=== PATIENT | male | born 1995 | race African-American/Black ===

== ENCOUNTER 2016-04-17 17:46 | Emergency (ER) | payer OTHER ==
[2016-04-17 17:59] VITALS: BP 143/81; PULSE 105; TEMP 97.8; BMI 23.9
[2016-04-17] MEDS ORDERED: IBUPROFEN 400 MG TABLET (FP) PO ONE ×2 (18:29→18:33)
--- NOTE | 2016-04-17 18:35 | PDOC ---
History of Present Illness - General Chief Complaint: Abscess Boil Stated Complaint: BUMPS ON CHEST Time Seen by Provider: 04/17/16 17:52 History Source: Patient - History of Present Illness Associated Symptoms: denies: fever/chills Past History - Past Medical History Allergies/Adverse Reactions: Allergies Allergy/AdvReac Type Severity Reaction Status Date / Time No Known Allergies Allergy Verified 06/22/14 23:29 Home Medications: Ambulatory Orders NK [No Known Home Medication] 04/17/16 Other medical history: denies - Immunization History Immunization Up to Date: Yes - Psycho/Social/Smoking Cessation Hx Anxiety: No Suicidal Ideation: No Smoking History: Current every day smoker Number of Cigarettes Smoked Daily: 20 Information on smoking cessation initiated: Yes 'Breaking Loose' booklet given: 04/17/16 Hx Alcohol Use: Yes Drug/Substance Use Hx: Yes (marijuana) Substance Use Type: None, Marijuana Review of Systems - Review of Systems Constitutional: No: Chills, Fever, Malaise, Unexplained wgt Loss *Physical Exam - Vital Signs Last Vital Signs Temp Pulse Resp BP Pulse Ox 97.8 F 105 H 18 143/81 99 04/17/16 17:52 04/17/16 17:52 04/17/16 17:52 04/17/16 17:52 04/17/16 17:52 - Physical Exam General Appearance: Yes: Appropriately Dressed. No: Apparent Distress HEENT: positive: Normal Voice Neck: positive: Supple. negative: Lymphadenopathy (R), Lymphadenopathy (L) Respiratory/Chest: positive: Other (b/l tender breast masses b/l, underlying nipple, R side measuring ~1cm, L side ~0.5cm, no fluctuance, no erythema). negative: Respiratory Distress Integumentary: positive: Dry, Warm Neurologic: positive: Fully Oriented, Alert, Normal Mood/Affect Medical Decision Making - Medical Decision Making 04/17/16 18:29 21-year-old male, no significant history, here for evaluation of breast mass. Patient states 3-4 weeks ago he developed bilateral painful masses to breast, underlying nipple. Was seen in urgent care center 3 weeks ago and had bilateral ultrasound done but does not remember diagnosis but told it was not an infxn as per pt. States he was told to follow-up with his doctor for further workup. Patient states he made an appointment for April 26 but thought that the date was too far out, so canceled appointment and now planning on making another appointment with a different doctor. Here for another evaluation ED as he is anxious as per patient. No nipple discharge, fever, chills or unexplained weight loss. No significant family history. Patient well -appearing and stable in ED w/ palpable, tender masses under areola bilaterally , right measuring about 1 cm, left side measuring about 0.5 cm. No fluctuance, nipple changes otherwise or cervical or axillary lymphadenopathy. Had lengthy discussion with patient regarding definition of gynecomastia and that given bilateral involvement, less likely malignancy, but that he will need to follow up with his doctor for further workup. Patient instructed to take Motrin as needed until then *DC/Admit/Observation/Transfer Diagnosis at time of Disposition: Gynecomastia, male - Discharge Dispostion Disposition: HOME Condition at time of disposition: Good - Referrals Referrals: Romina Crump MD [Primary Care Provider] - Jerry Walker [Staff Physician] - - Patient Instructions Printed Discharge Instructions: DI for Gynecomastia Additional Instructions: Take Motrin as needed for pain and follow-up with your PMD for further workup. You can also follow-up with Dr. Walker of endocrinology. Please follow-up at [facility] at [phone] - Post Discharge Activity Work/School Note: Back to Work
== END 2016-04-17 18:44 | disposition home or self-care (01) ==
LOC: JERFT 17:46
DX: N62 Hypertrophy of breast (principal); F17.210 Nicotine dependence, cigarettes, uncomplicated
CPT/HCPCS: 99281-25

== ENCOUNTER 2019-01-02 11:19 | Inpatient (IN) | payer OTHER ==
[2019-01-02 14:01] VITALS: BMI 23.4
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
[2019-01-02] MEDS ORDERED: BISMUTH SUBSALICYLATE 524 MG/30 ML UD PO PRN (14:51)
[2019-01-02] MEDS ORDERED: METHOCARBAMOL 500 MG TABLET PO PRN (14:51)
[2019-01-02] MEDS ORDERED: hydrOXYzine PAMOATE 25 MG CAPSULE (FP) PO PRN (14:51)
[2019-01-02] MEDS ORDERED: MAG HYDROX/AL HYDROX/SIMETH 30 ML UNIT-DOSE CUP PO PRN (14:51)
[2019-01-02] MEDS ORDERED: NICOTINE POLACRILEX 4 MG GUM BUC PRN (14:51)
[2019-01-02] MEDS ORDERED: MAGNESIUM HYDROX 2400MG/30ML ORAL SUSPENSION 30 ML CUP PO PRN (14:51)
[2019-01-02] MEDS ORDERED: MENTHOL/PHENOL 1 EACH UD MM PRN (14:51)
[2019-01-02] MEDS ORDERED: IBUPROFEN 400 MG TABLET (FP) PO PRN (14:51)
[2019-01-02] MEDS ORDERED: MELATONIN 5 MG TABLETS PO PRN (14:51)
[2019-01-02] MEDS ORDERED: MAGNESIUM CITRATE 300 ML BOTTLE PO PRN (14:51)
[2019-01-02] MEDS ORDERED: chlordiazePOXIDE HCL 25 MG CAPSULE PO PRN (14:51)
[2019-01-02] MEDS ORDERED: chlordiazePOXIDE HCL 25 MG CAPSULE PO ONE (14:51)
[2019-01-02] MEDS ORDERED: ACETAMINOPHEN 325 MG TABLET (FP) PO PRN ×2 (14:51)
[2019-01-02] MEDS: ALBUTEROL SO4 8 GM HFA INHALER IH SCH (17:39)
[2019-01-02] MEDS: chlordiazePOXIDE HCL 25 MG CAPSULE PO SCH ×2 (17:40→23:12)
[2019-01-02] MEDS ORDERED: THIAMINE HCL 100 MG TABLET (FP) PO SCH (22:00)
[2019-01-03] MEDS: ALBUTEROL SO4 8 GM HFA INHALER IH SCH ×2 (00:57→06:52)
[2019-01-03] MEDS: chlordiazePOXIDE HCL 25 MG CAPSULE PO SCH ×2 (05:28→10:25)
[2019-01-03 09:11] VITALS: BP 130/84; PULSE 72; TEMP 96.4
[2019-01-03] MEDS ORDERED: PRENATAL VITAMINS W/ FOLIC ACID TABLET (FP) PO SCH (10:00)
[2019-01-03 10:29] LABS: HEMATOCRIT 47.3 % (35.4-49); HEMOGLOBIN 15.7 GM/dL (11.7-16.9); MCH 30.7 pg (25.7-33.7); MCHC 33.1 g/dl (32.0-35.9); MEAN CELL VOLUME 92.7 fl (80-96); MEAN PLT VOLUME 9.3 fl (7.5-11.1); RDW 17.1 % (11.9-15.9); WHITE BLOOD COUNT 4.9 K/mm3 (4.0-10.0)
[2019-01-03 10:40] LABS: ALBUMIN 3.9 g/dl (3.4-5.0); BILIRUBIN,TOTAL 1.2 mg/dL (0.2-1); BLOOD UREA NITROGEN 6.8 mg/dL (7-18); CALCIUM 9.4 mg/dL (8.5-10.1); CREATININE 0.9 mg/dL (0.55-1.3); POTASSIUM 3.7 mmol/L (3.5-5.1); TOT PROT 7.4 g/dl (6.4-8.2)
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
--- NOTE | 2019-01-03 10:54 | EKG ---
Test Reason : Blood Pressure : / mmHG Vent. Rate : 073 BPM Atrial Rate : 073 BPM P-R Int : 148 ms QRS Dur : 086 ms QT Int : 384 ms P-R-T Axes : 058 080 028 degrees QTc Int : 423 ms NORMAL SINUS RHYTHM NONSPECIFIC ST ABNORMALITY ABNORMAL ECG NO PREVIOUS ECGS AVAILABLE Confirmed by BLANCA NICOLAS, SLY ([id number]) on 01/03/2019 10:53:56 AM Referred By: Michel Workman Confirmed By:SLY RIOS MD
[2019-01-03] MEDS ORDERED: hydrOXYzine PAMOATE 25 MG CAPSULE (FP) PO PRN (11:17)
[2019-01-03 14:46] LABS: PLATELET COUNT 180 K/MM3 (134-434)
--- NOTE | 2019-01-03 14:54 | DS ---
[facility] Detox Discharge Summary Admission Date: 01/02/19 Discharge Date: 01/03/19 - History Present History: Alcohol Dependence Additional Comments: 23 years old male admitted on 01/02/19 for alcohol withdrawal sx management treated with librium detox regimen patient tolerated well ate breakfast no trouble chewing swallowing tolerated food and fluid well showered "I volunteer coming here, I want to go now" patient is alert oriented x 3 speech clearly coherently ambulating steady gait denies suicidal ideation Pertinent Past History: patient refuses ciwa refuses discharge exist physical examination - Physical Exam Results Vital Signs: Vital Signs Temperature 96.4 F L 01/03/19 09:10 Pulse Rate 72 01/03/19 09:10 Respiratory Rate 18 01/03/19 09:10 Blood Pressure 130/84 01/03/19 09:10 O2 Sat by Pulse Oximetry (%) Pertinent Admission Physical Exam Findings: alcohol withdrawal sx Laboratory Last Values WBC 4.9 K/mm3 (4.0-10.0) 01/03/19 07:50 RBC 5.10 M/mm3 (4.00-5.60) 01/03/19 07:50 Hgb 15.7 GM/dL (11.7-16.9) 01/03/19 07:50 Hct 47.3 % (35.4-49) 01/03/19 07:50 MCV 92.7 fl (80-96) 01/03/19 07:50 MCH 30.7 pg (25.7-33.7) 01/03/19 07:50 MCHC 33.1 g/dl (32.0-35.9) 01/03/19 07:50 RDW 17.1 % (11.9-15.9) H 01/03/19 07:50 Plt Count 180 K/MM3 (134-434) 01/03/19 07:50 MPV 9.3 fl (7.5-11.1) 01/03/19 07:50 Platelet Comment Giant platelets 01/03/19 07:50 Sodium 137 mmol/L (136-145) 01/03/19 07:40 Potassium 3.7 mmol/L (3.5-5.1) 01/03/19 07:40 Chloride 102 mmol/L (98-107) 01/03/19 07:40 Carbon Dioxide 29 mmol/L (21-32) 01/03/19 07:40 Anion Gap 7 MMOL/L (8-16) L 01/03/19 07:40 BUN 6.8 mg/dL (7-18) L 01/03/19 07:40 Creatinine 0.9 mg/dL (0.55-1.3) 01/03/19 07:40 Est GFR (CKD-EPI)AfAm 137.10 01/03/19 07:40 Est GFR (CKD-EPI)NonAf 118.29 01/03/19 07:40 Random Glucose 74 mg/dL (74-106) 01/03/19 07:40 Calcium 9.4 mg/dL (8.5-10.1) 01/03/19 07:40 Total Bilirubin 1.2 mg/dL (0.2-1) H 01/03/19 07:40 AST 20 U/L (15-37) 01/03/19 07:40 ALT 27 U/L (13-61) 01/03/19 07:40 Alkaline Phosphatase 92 U/L (45-117) 01/03/19 07:40 Total Protein 7.4 g/dl (6.4-8.2) 01/03/19 07:40 Albumin 3.9 g/dl (3.4-5.0) 01/03/19 07:40 RPR Titer Nonreactive (NONREACTIVE) 01/03/19 07:40 lab noted - Treatment Hospital Course: Detox Protocol Followed, Responded well Patient has Accepted a Rehab Referral to: community support approach - Medication Discharge Medications: Ambulatory Orders Albuterol Sulfate Inhaler - [Ventolin Hfa Inhaler -] 2 inh PO Q6H 01/02/19 - Diagnosis (1) Alcohol dependence with withdrawal, uncomplicated Status: Acute (2) Nicotine dependence Status: Acute Qualifiers: Nicotine product type: cigarettes Substance use status: in withdrawal Qualified Code(s): F17.213 - Nicotine dependence, cigarettes, with withdrawal - AMA Did Patient Leave Against Medical Advice: Yes
[2019-01-04] MEDS ORDERED: chlordiazePOXIDE HCL 25 MG CAPSULE PO SCH (05:00)
[2019-01-05] MEDS ORDERED: chlordiazePOXIDE HCL 10 MG CAPSULE PO PRN
[2019-01-05] MEDS ORDERED: chlordiazePOXIDE HCL 10 MG CAPSULE PO SCH (05:00)
[2019-01-06] MEDS ORDERED: chlordiazePOXIDE HCL 10 MG CAPSULE PO SCH (05:00)
[2019-01-07] MEDS ORDERED: chlordiazePOXIDE HCL 10 MG CAPSULE PO ONE (05:00)
== END 2019-01-03 12:49 | disposition left against medical advice (07) | DRG 770 ==
LOC: YASAS 11:19 → Y3N 15:04
PROVIDERS: ADMIT Allergy & Immunology; ATTEND Allergy & Immunology
PROC: HZ2ZZZZ Detoxification Services for Substance Abuse Treatment (ICD-10-PCS; principal; 2019-01-02)
DX: F10.230 Alcohol dependence with withdrawal, uncomplicated (principal); F14.20 Cocaine dependence, uncomplicated; F12.20 Cannabis dependence, uncomplicated; F11.10 Opioid abuse, uncomplicated; F17.213 Nicotine dependence, cigarettes, with withdrawal; J45.20 Mild intermittent asthma, uncomplicated; R00.0 Tachycardia, unspecified
CPT/HCPCS: 36415; 80053; 85027; 86593; 93005; 93010

== ENCOUNTER 2019-01-04 00:47 | Emergency (ER) | payer OTHER ==
--- NOTE | 2019-01-04 01:41 | PDOC ---
History of Present Illness - General Chief Complaint: Depression Stated Complaint: DEPRESSED Time Seen by Provider: 01/04/19 01:41 History Source: Patient Exam Limitations: No Limitations - History of Present Illness Initial Comments: Pt is a 23 yo M, with PMH of polysubstance abuse (THC, cocaine, alcohol), who is presenting to the ER for detox. Pt states he left AMA from [facility] earlier today "because he got mad that he was in withdrawal". Pt then drank "1 pint of jigna" and "used a 40 bag of cocaine" just prior to arrival. Pt denies any SI or HI and had no falls or injuries today. Pt denies any fevers/chills, tremors or withdrawal symptoms, headache, vision changes, syncope, chest pain, palpitations, SOB, nausea/vomiting, abdominal pain, urinary symptoms, diarrhea/ constipation, or leg swelling. Allergies: NKDA PCP: Dr. Romina Elise Social: Pt smokes 1 ppd. Regular alcohol use (~1 pint/day) and frequent cocaine use. Pt lives alone in an apartment and feels safe at home. Has running water, electricity, and food at home. Pt denies any recent travel or sick contacts. Surgical: no relevant history. Family: no relevant history. Past History - Past Medical History Allergies/Adverse Reactions: Allergies No Known Allergies Allergy (Verified 01/04/19 01:43) Home Medications: Ambulatory Orders Albuterol Sulfate Inhaler - [Ventolin Hfa Inhaler -] 2 inh PO Q6H 01/02/19 Psychosocial History: Yes: hypertension Surgical History: Yes: No Surgical History - Family History Significant Family History: Yes: no pertinent family hx - Immunization History Immunization Up to Date: Yes Tetanus Status: Less than 5 years - Social History Smoking History: Yes Smoking Status: Current every day smoker Number of Cigarettes Per Day: 20 Alcohol Use: heavy Drug Use: cocaine, marijuana Patient Lives Alone: Yes *Review of Systems - Review of Systems Able to Perform ROS?: Yes Constitutional: Yes: Weight Stable. No: Chills, Diaphoresis, Fever, Loss of Appetite, Malaise, Weakness HEENTM: No: Recent change in vision, Nose Congestion, Throat Pain, Throat Swelling, Difficulty Swallowing Respiratory: No: Cough, Orthopnea, Shortness of Breath Cardiac (ROS): No: Chest Pain, Edema, Irregular Heart Rate, Lightheadedness, Palpitations, Syncope, Chest Tightness ABD/GI: No: Constipated, Diarrhea, Nausea, Poor Appetite, Poor Fluid Intake, Vomiting : No: Burning, Dysuria, Frequency, Flank Pain, Hematuria, Pain, Urgency Musculoskeletal: No: Back Pain, Joint Pain, Muscle Pain, Muscle Weakness Integumentary: No: Rash Neurological: No: Headache, Numbness, Weakness, Unsteady Gait, Dizziness Psychiatric: Yes: Emotional Problems, Other (polysubstance abuse, see HPI). No : Sleep Pattern Change, Change in Appetite Endocrine: No: Increased Urine, Change in Weight Hematologic/Lymphatic: No: Anemia, Blood Clots, Easy Bleeding, Easy Bruising All Other Systems: Reviewed and Negative *Physical Exam - Physical Exam Comments: HTN and tachycardic. Pt in NAD, normal body habitus, but visibly intoxicated and slurring speech. Appears comfortable, sleeping on the bed. Affect slightly flat, but answers all questions appropriately. Pt alert and oriented x3. insurance attorney generally intact, muscular strength and sensation intact. Cerebellar exam WNL. No midline spinal tenderness, step-offs, or crepitus. Head normocephalic, atraumatic. Eyes PERRLA, EOMI. Oropharynx without erythema or exudates, no LAD b/l. No nasal congestion. Hearing intact. Clear heart sounds, S1/S2, no JVD, b/l pedal edema, or heart murmur. Clear lung sounds, no respiratory distress, wheezes, crackles, or accessory muscle use. No abdominal or CVA tenderness to palpation, no rebound, no guarding. Abdomen soft, non-distended, and with normoactive bowel sounds. Skin without jaundice or rash. 01/04/19 04:34 Medical Decision Making - Medical Decision Making Pt was seen at bedside, also will be seen by attending Dr. Dwyer. Pt presenting intoxicated and asking for detox services. Pt left AMA earlier today, but had labwork that was generally WNL. Pt has no acute complaints, denies SI/HI, denies withdrawal symptoms. No tongue fasciculation or hand tremors. Pt tolerating PO intake in ED. Will continue to reassess pt and monitor for symptomatic improvement. ECG: NSR, intervals WNL (HR 93, GA 154, QRS 88, QTc 427). TWI in III with no reciprocal changes or ST segment abnormalities. No significant changes from prior ECG (01/02/2019). 01/04/19 04:37 [facility] will accept pt for detox intake in the AM. Pt resting comfortably. Will go to [facility] at 8am. Pt will be signed out to day team for transportation. 01/04/19 04:37 Discharge Disposition - Diagnosis Alcohol abuse, Cocaine abuse - Discharge Dispostion Condition at time of disposition: Stable Last Admission D/C Date: 01/03/19 Decision to Admit order: No - Referrals Referrals: Romina Crump MD [Primary Care Provider] - - Patient Instructions - Post Discharge Activity
[2019-01-04 01:43] VITALS: BMI 23.6
[2019-01-04 06:22] VITALS: BP 131/87; PULSE 59; TEMP 97.5
--- NOTE | 2019-01-04 10:01 | EKG ---
Test Reason : Blood Pressure : / mmHG Vent. Rate : 093 BPM Atrial Rate : 093 BPM P-R Int : 154 ms QRS Dur : 088 ms QT Int : 344 ms P-R-T Axes : 069 068 024 degrees QTc Int : 427 ms NORMAL SINUS RHYTHM NONSPECIFIC T WAVE ABNORMALITY ABNORMAL ECG WHEN COMPARED WITH ECG OF 02-JAN-2019 16:17, NO SIGNIFICANT CHANGE WAS FOUND Confirmed by ALBERT LEON MD ([id number]) on 01/04/2019 10:01:38 AM Referred By: Confirmed By:ALBERT LEON MD
--- NOTE | 2019-01-07 09:25 | PDOC ---
Documentation entered by Vicky Mora SCRIBE, acting as scribe for Mark Dwyer MD. Mark Dwyer MD: This documentation has been prepared by the rogeribe, Vicky Mora SCRIBE, under my direction and personally reviewed by me in its entirety. I confirm that the documentation accurately reflects all work, treatment, procedures, and medical decision making performed by me. Attending Attestation - Resident Resident Name: BryanDenisha - ED Attending Attestation I have performed the following: I have examined & evaluated the patient, The case was reviewed & discussed with the resident, I agree w/resident's findings & plan, Exceptions are as noted - HPI HPI: 01/04/19 02:08 23 M with h/o ETOH, marijuana, cocaine abuse presenting to ED seeking alcohol detox. Pt was recently admitted to [address] [place] [address] for ETOH detox 3 days ago. This morning, pt left AMA because he was afraid he was going to withdraw. He subsequently drank a bottle of solomon and used cocaine. Pt now presents to ED seeking re-admission for detox. Pt denies any SI/HI/AVH. Denies any attempts to hurt himself. - Physicial Exam PE: 01/04/19 02:09 "GENERAL: Awake, alert, and fully oriented, in no acute distress. HEAD: No signs of trauma EYES: PERRLA, EOMI, sclera anicteric, conjunctiva clear ENT: Auricles normal inspection, hearing grossly normal, nares patent, oropharynx clear without exudates. Moist mucosa NECK: Nontender, no stepoffs, Normal ROM, supple, no lymphadenopathy, JVD, or masses LUNGS: Breath sounds equal, clear to auscultation bilaterally. No wheezes, and no crackles HEART: Regular rate and rhythm, normal S1 and S2, no murmurs, rubs or gallops ABDOMEN: Soft, nontender, normoactive bowel sounds. No guarding, no rebound. No masses EXTREMITIES: Normal range of motion, no edema. No clubbing or cyanosis. No cords, erythema, or tenderness NEUROLOGICAL: Cranial nerves II through XII intact. 5/5 strength and sensation in all extremities, Normal speech, normal gait, normal cerebellar function SKIN: Warm, Dry, normal turgor, no rashes or lesions noted. - Medical Decision Making 01/04/19 02:10 23 M with ETOH, cocaine, marijuana abuse presenting to ED seeking detox. Pt is not actively withdrawing, has no complaints of SI/HI/AVH. - Labs drawn this AM wnl - Will check Utox, EKG 01/04/19 02:31 EKG wnl Pt clinically sober at this time. Awaiting [facility] bed availability in AM. Signed out to oncoming team at 7AM, pending [facility] bed availability.
== END 2019-01-04 08:20 | disposition home or self-care (01) ==
LOC: JER 00:47
DX: F10.10 Alcohol abuse, uncomplicated (principal); F14.10 Cocaine abuse, uncomplicated; I10 Essential (primary) hypertension; F17.210 Nicotine dependence, cigarettes, uncomplicated
CPT/HCPCS: 93005; 93010; 99283-25

== ENCOUNTER 2022-01-27 17:42 | Inpatient (IN) | payer OTHER ==
[2022-01-27 17:46] VITALS: BMI 22.1
[2022-01-27] MEDS ORDERED: morphine CARPU-JECT 4 MG/1 ML DISP.SYRIN IVPUSH ONE ×2 (19:11→21:45)
[2022-01-27] MEDS ORDERED: SODIUM CHLORIDE 0.9% 500 ML INFUS.BAG IV ONE (19:11)
[2022-01-27] MEDS ORDERED: morphine SULFATE 4 MG/ML VIAL ONE ×2 (20:36→21:47)
[2022-01-27] MEDS ORDERED: ONDANSETRON 4 MG/2 ML VIAL IVPUSH ONE (20:45)
[2022-01-27] MEDS ORDERED: ONDANSETRON 4 MG/2 ML VIAL ONE (20:46)
[2022-01-27 21:05] LABS: BASO % 0.3 % (0-2.0); EOS % 0.1 % (0-4.5); HEMATOCRIT 52.4 % (35.4-49); HEMOGLOBIN 17.6 GM/dL (11.7-16.9); LYMPH % 6.4 % (8-40); MCHC 33.5 g/dl (32.0-35.9); MEAN CELL VOLUME 89.6 fl (80-96); MEAN PLT VOLUME 8.6 fl (7.5-11.1); MONO % 7.8 % (3.8-10.2); NEUT % 85.4 % (42.8-82.8); PLATELET COUNT 260 10^3/uL (134-434); RBC 5.85 M/mm3 (4.00-5.60); RDW 13.9 % (11.9-15.9); WHITE BLOOD COUNT 12.6 K/mm3 (4.0-10.0)
[2022-01-27 21:27] LABS: CALCIUM 10.2 mg/dL (8.5-10.1)
[2022-01-27 21:28] LABS: ALBUMIN 4.3 g/dl (3.4-5.0); BLOOD UREA NITROGEN 9.4 mg/dL (7-18)
[2022-01-27 21:31] LABS: CREATININE 0.9 mg/dL (0.55-1.3)
[2022-01-27 21:32] LABS: TOT PROT 8.8 g/dl (6.4-8.2)
[2022-01-27 21:33] LABS: BILIRUBIN,TOTAL 0.8 mg/dL (0.2-1)
[2022-01-27] MEDS ORDERED: HYDROmorphone HCL CARPU-JECT 2 MG/1 ML DISP.SYRIN IVPUSH ONE (23:27)
[2022-01-27] MEDS ORDERED: HYDROmorphone HCl 2 MG/ML VIAL ONE (23:55)
[2022-01-28] MEDS ORDERED: KETOROLAC TROMETHAMINE 15 MG/ML VIAL ONE ×2 (02:34→08:47)
[2022-01-28] MEDS ORDERED: morphine SULFATE 4 MG/ML VIAL ONE ×4 (02:34→20:45)
[2022-01-28] MEDS: KETOROLAC TROMETHAMINE 15 MG/ML VIAL IVPUSH PRN ×2 (02:50→08:48)
[2022-01-28] MEDS: LACTATED RINGERS SOLUTION 1,000 ML/1,000 ML INFUS.BAG IV SCH (05:11)
[2022-01-28 07:56] LABS: MAGNESIUM 1.8 mg/dL (1.8-2.4)
[2022-01-28 07:59] LABS: PHOSPHOROUS 4.1 mg/dL (2.5-4.9)
[2022-01-28] MEDS ORDERED: HYDROmorphone HCL CARPU-JECT 2 MG/1 ML DISP.SYRIN IVPUSH ONE (14:52)
[2022-01-28] MEDS ORDERED: THIAMINE HCL 200 MG/2 ML VIAL ONE (16:19)
[2022-01-28] MEDS ORDERED: ENOXAPARIN NA (PORCINE) 40 MG/0.4 ML DISP.SYRIN SQ ONE (16:20)
[2022-01-28] MEDS ORDERED: HYDROmorphone HCl 2 MG/ML VIAL ONE (16:20)
[2022-01-28] MEDS: THIAMINE HCL 200 MG/2 ML VIAL IVPB SCH (16:33)
[2022-01-28] MEDS: ENOXAPARIN NA (PORCINE) 40 MG/0.4 ML DISP.SYRIN SQ SCH (16:33)
[2022-01-29] MEDS: LACTATED RINGERS SOLUTION 1,000 ML/1,000 ML INFUS.BAG IV SCH ×3 (01:12→17:05)
[2022-01-29] MEDS: KETOROLAC TROMETHAMINE 15 MG/ML VIAL IVPUSH PRN (08:37)
[2022-01-29] MEDS: THIAMINE HCL 200 MG/2 ML VIAL IVPB SCH (09:48)
[2022-01-29] MEDS: ENOXAPARIN NA (PORCINE) 40 MG/0.4 ML DISP.SYRIN SQ SCH (09:49)
[2022-01-29 10:15] LABS: BASO % 0.4 % (0-2.0); EOS % 1.1 % (0-4.5); HEMATOCRIT 44.4 % (35.4-49); HEMOGLOBIN 14.9 GM/dL (11.7-16.9); LYMPH % 11.2 % (8-40); MCHC 33.6 g/dl (32.0-35.9); MEAN CELL VOLUME 89.3 fl (80-96); MEAN PLT VOLUME 8.7 fl (7.5-11.1); MONO % 10.7 % (3.8-10.2); NEUT % 76.6 % (42.8-82.8); PLATELET COUNT 166 10^3/uL (134-434); RBC 4.97 M/mm3 (4.00-5.60); RDW 13.8 % (11.9-15.9); WHITE BLOOD COUNT 9.5 K/mm3 (4.0-10.0)
[2022-01-29 10:57] LABS: BLOOD UREA NITROGEN 5.1 mg/dL (7-18); MAGNESIUM 1.7 mg/dL (1.8-2.4)
[2022-01-29 10:59] LABS: PHOSPHOROUS 2.4 mg/dL (2.5-4.9)
[2022-01-29 11:00] LABS: CREATININE 0.7 mg/dL (0.55-1.3)
[2022-01-29 11:01] LABS: BILIRUBIN,TOTAL 0.6 mg/dL (0.2-1)
[2022-01-29 11:05] LABS: ALBUMIN 2.6 g/dl (3.4-5.0); CALCIUM 8.4 mg/dL (8.5-10.1); TOT PROT 5.5 g/dl (6.4-8.2)
[2022-01-29] MEDS ORDERED: ONDANSETRON 4 MG/2 ML VIAL IVPUSH PRN (14:09)
[2022-01-30] MEDS: LACTATED RINGERS SOLUTION 1,000 ML/1,000 ML INFUS.BAG IV SCH ×2 (01:30→10:16)
[2022-01-30] MEDS: KETOROLAC TROMETHAMINE 15 MG/ML VIAL IVPUSH PRN (08:47)
[2022-01-30] MEDS: ENOXAPARIN NA (PORCINE) 40 MG/0.4 ML DISP.SYRIN SQ SCH (10:04)
[2022-01-30] MEDS: THIAMINE HCL 200 MG/2 ML VIAL IVPB SCH (10:05)
[2022-01-30] MEDS: POLYETHYLENE GLYCOL (HEALTHYLAX) 3350 17 GM PACKET PO SCH (10:05)
[2022-01-30 10:12] LABS: BASO % 0.6 % (0-2.0); EOS % 3.6 % (0-4.5); HEMATOCRIT 44.2 % (35.4-49); HEMOGLOBIN 14.4 GM/dL (11.7-16.9); LYMPH % 21.6 % (8-40); MCH 28.9 pg (25.7-33.7); MCHC 32.5 g/dl (32.0-35.9); MEAN PLT VOLUME 9.4 fl (7.5-11.1); MONO % 12.5 % (3.8-10.2); NEUT % 61.7 % (42.8-82.8); PLATELET COUNT 173 10^3/uL (134-434); RBC 4.97 M/mm3 (4.00-5.60); RDW 13.5 % (11.9-15.9); WHITE BLOOD COUNT 7.7 K/mm3 (4.0-10.0)
[2022-01-30] MEDS ORDERED: POTASSIUM CHLORIDE TABS 20 MEQ TABLET.ER (FP) PO ONE (10:15)
[2022-01-30 10:16] LABS: ALBUMIN 2.4 g/dl (3.4-5.0); BLOOD UREA NITROGEN 3.9 mg/dL (7-18)
[2022-01-30 10:17] LABS: BILIRUBIN,TOTAL 0.6 mg/dL (0.2-1); TOT PROT 5.5 g/dl (6.4-8.2)
[2022-01-30 10:19] LABS: CALCIUM 8.7 mg/dL (8.5-10.1); CREATININE 0.7 mg/dL (0.55-1.3)
[2022-01-30 10:22] LABS: MAGNESIUM 1.6 mg/dL (1.8-2.4)
[2022-01-30] MEDS: morphine SULFATE 4 MG/ML VIAL IVPUSH PRN ×3 (14:18→22:05)
[2022-01-30] MEDS: LORazepam 2 MG/ML SDV VIAL IVPUSH PRN (16:24)
[2022-01-31] MEDS: morphine SULFATE 4 MG/ML VIAL IVPUSH PRN ×2 (02:01→05:57)
[2022-01-31] MEDS: LACTATED RINGERS SOLUTION 1,000 ML/1,000 ML INFUS.BAG IV SCH ×3 (02:01→11:45)
[2022-01-31] MEDS: KETOROLAC TROMETHAMINE 15 MG/ML VIAL IVPUSH PRN ×4 (05:07→21:28)
[2022-01-31] MEDS: POLYETHYLENE GLYCOL (HEALTHYLAX) 3350 17 GM PACKET PO SCH (09:51)
[2022-01-31] MEDS: THIAMINE HCL 200 MG/2 ML VIAL IVPB SCH (09:51)
[2022-01-31] MEDS: ENOXAPARIN NA (PORCINE) 40 MG/0.4 ML DISP.SYRIN SQ SCH (09:54)
[2022-01-31 13:04] LABS: BASO % 0.7 % (0-2.0); EOS % 4.7 % (0-4.5); HEMATOCRIT 43.2 % (35.4-49); HEMOGLOBIN 14.5 GM/dL (11.7-16.9); MCH 29.8 pg (25.7-33.7); MCHC 33.6 g/dl (32.0-35.9); MEAN CELL VOLUME 88.5 fl (80-96); MONO % 11.6 % (3.8-10.2); PLATELET COUNT 198 10^3/uL (134-434); RBC 4.88 M/mm3 (4.00-5.60); RDW 13.4 % (11.9-15.9); WHITE BLOOD COUNT 6.4 K/mm3 (4.0-10.0)
[2022-01-31 13:24] LABS: BLOOD UREA NITROGEN 3.1 mg/dL (7-18)
[2022-01-31 13:27] LABS: CREATININE 0.7 mg/dL (0.55-1.3)
[2022-01-31] MEDS: LORazepam 2 MG/ML SDV VIAL IVPUSH PRN (18:51)
[2022-01-31 21:07] VITALS: PULSE 64
[2022-02-01] MEDS: LORazepam 2 MG/ML SDV VIAL IVPUSH PRN (01:26)
[2022-02-01] MEDS: LACTATED RINGERS SOLUTION 1,000 ML/1,000 ML INFUS.BAG IV SCH (01:40)
[2022-02-01] MEDS ORDERED: KETOROLAC TROMETHAMINE 15 MG/ML VIAL IVPUSH ONE (07:26)
[2022-02-01] MEDS: POLYETHYLENE GLYCOL (HEALTHYLAX) 3350 17 GM PACKET PO SCH (09:16)
[2022-02-01] MEDS: ENOXAPARIN NA (PORCINE) 40 MG/0.4 ML DISP.SYRIN SQ SCH (09:16)
[2022-02-01] MEDS: THIAMINE HCL 200 MG/2 ML VIAL IVPB SCH (09:20)
[2022-02-01 10:44] LABS: BASO % 0.4 % (0-2.0); HEMATOCRIT 44.2 % (35.4-49); LYMPH % 13.4 % (8-40); MCH 30.3 pg (25.7-33.7); MEAN CELL VOLUME 89.2 fl (80-96); MEAN PLT VOLUME 8.3 fl (7.5-11.1); MONO % 7.9 % (3.8-10.2); NEUT % 75.3 % (42.8-82.8); PLATELET COUNT 247 10^3/uL (134-434); RBC 4.95 M/mm3 (4.00-5.60); RDW 13.3 % (11.9-15.9); WHITE BLOOD COUNT 6.7 K/mm3 (4.0-10.0)
[2022-02-01 11:16] LABS: CHLORIDE 102 mmol/L (98-107); SODIUM 141 mmol/L (136-145)
[2022-02-01 11:24] LABS: ALBUMIN 3.1 g/dl (3.4-5.0); ALK PHOS 57 U/L (45-117); ANION GAP 9 MMOL/L (8-16); BILIRUBIN,TOTAL 0.3 mg/dL (0.2-1); BLOOD UREA NITROGEN 2.4 mg/dL (7-18); CALCIUM 9.2 mg/dL (8.5-10.1); CO2 30 mmol/L (21-32); CREATININE 0.7 mg/dL (0.55-1.3); GLUCOSE,RANDOM 112 mg/dL (74-106); MAGNESIUM 1.8 mg/dL (1.8-2.4); SGOT/AST 15 U/L (15-37); SGPT/ALT 19 U/L (13-61)
[2022-02-01 12:37] VITALS: BP 150/96; RESP 19; TEMP 98.4
== END 2022-02-01 11:55 | disposition home or self-care (01) | DRG 282 ==
LOC: JER 17:42 → JERBED 23:28 → J6S 01-28 21:43 → J7W 01-28 23:01 → J8W 01-30 17:19 → J7W 01-31 23:17
PROVIDERS: ADMIT Family Medicine; ATTEND Nurse Practitioner Family
DX: K85.20 Alcohol induced acute pancreatitis without necrosis or infection (principal); R10.11 Right upper quadrant pain; F17.210 Nicotine dependence, cigarettes, uncomplicated; F10.10 Alcohol abuse, uncomplicated; Z20.822 Contact with and (suspected) exposure to COVID-19
CPT/HCPCS: 36415; 71046-TC-FY; 74177-TC; 76705-TC; 80048; 80053; 80307; 82150; 82550; 83690; 83735; 84100; 84478; 85025; 86140; 93005; 93010; 99285-25; C9803-CS; Q9967; U0003; U0005

== ENCOUNTER 2022-03-31 21:59 | Inpatient (IN) | payer OTHER ==
[2022-03-31 22:16] VITALS: BMI 24.7
[2022-03-31] MEDS ORDERED: FAMOTIDINE 20 MG/50 ML IVPB 20 MG/50 ML MG IVPB ONE ×2 (23:06→23:53)
[2022-03-31] MEDS ORDERED: ONDANSETRON 4 MG/2 ML VIAL IVPUSH ONE (23:06)
[2022-03-31] MEDS ORDERED: ACETAMINOPHEN 1000 MG/100 ML BAG IVPB ONE (23:06)
[2022-03-31] MEDS ORDERED: SODIUM CHLORIDE 0.9% 500 ML INFUS.BAG IV ONE (23:06)
[2022-03-31] MEDS ORDERED: ONDANSETRON 4 MG/2 ML VIAL ONE (23:53)
[2022-03-31] MEDS ORDERED: ACETAMINOPHEN INJECTION 100 ML IVPB ONE (23:53)
[2022-04-01 00:48] LABS: BASO % 0.4 % (0-2.0); EOS % 0.5 % (0-4.5); HEMATOCRIT 44.5 % (35.4-49); HEMOGLOBIN 15.1 GM/dL (11.7-16.9); LYMPH % 12.9 % (8-40); MCHC 33.9 g/dl (32.0-35.9); MEAN CELL VOLUME 88.7 fl (80-96); MEAN PLT VOLUME 8.6 fl (7.5-11.1); NEUT % 78.2 % (42.8-82.8); PLATELET COUNT 216 10^3/uL (134-434); RBC 5.02 M/mm3 (4.00-5.60); RDW 14.3 % (11.9-15.9); WHITE BLOOD COUNT 9.7 K/mm3 (4.0-10.0)
[2022-04-01 01:08] LABS: ALBUMIN 4.2 g/dl (3.4-5.0); LIPASE 1184 U/L (73-393)
[2022-04-01 01:11] LABS: BILIRUBIN,DIRECT 0.3 mg/dL (0.0-0.2); CREATININE 0.9 mg/dL (0.55-1.3)
[2022-04-01 01:13] LABS: TOT PROT 8.4 g/dl (6.4-8.2)
[2022-04-01] MEDS ORDERED: LACTATED RINGERS SOLUTION 1,000 ML/1,000 ML INFUS.BAG IV SCH (02:45)
[2022-04-01] MEDS ORDERED: morphine CARPU-JECT 4 MG/1 ML DISP.SYRIN IVPUSH ONE (02:58)
[2022-04-01] MEDS ORDERED: morphine SULFATE 4 MG/ML VIAL ONE ×2 (03:06→07:17)
[2022-04-01] MEDS ORDERED: SODIUM CHLORIDE 1,000 ML IV SCH ×2 (03:45→10:30)
[2022-04-01] MEDS ORDERED: HYDROmorphone HCL CARPU-JECT 2 MG/1 ML DISP.SYRIN IVPUSH ONE (04:52)
[2022-04-01] MEDS ORDERED: HYDROmorphone HCl 2 MG/ML VIAL IVPUSH ONE (04:52)
[2022-04-01] MEDS ORDERED: HYDROmorphone HCl 2 MG/ML VIAL ONE (05:02)
[2022-04-01] MEDS ORDERED: morphine SULFATE 4 MG/ML VIAL IVPUSH PRN ×2 (07:00→10:52)
[2022-04-01] MEDS ORDERED: morphine SULFATE 4 MG/ML VIAL IM PRN (09:42)
[2022-04-01] MEDS ORDERED: LACTATED RINGERS SOLUTION 1000 ML INFUS.BAG IV SCH (09:45)
[2022-04-01] MEDS ORDERED: morphine SULFATE 4 MG/ML VIAL IVPUSH ONE ×2 (10:27→14:31)
[2022-04-01] MEDS: LACTATED RINGERS SOLUTION 1,000 ML IV SCH ×3 (10:39→22:24)
[2022-04-01] MEDS: ENOXAPARIN NA (PORCINE) 40 MG/0.4 ML DISP.SYRIN SQ SCH (10:44)
[2022-04-01] MEDS: NICOTINE 21 MG/24 HOURS TOPICAL PATCH TD SCH (10:46)
[2022-04-01] MEDS: DOCUSATE SODIUM 100 MG CAPSULE (FP) PO SCH (10:47)
[2022-04-01] MEDS: FOLIC ACID 1 MG TABLET (FP) PO SCH (10:47)
[2022-04-01] MEDS: THIAMINE HCL 200 MG/2 ML VIAL IVPB SCH (11:08)
[2022-04-01] MEDS ORDERED: LISINOPRIL 20 MG TABLET PO ONE (14:12)
[2022-04-01] MEDS ORDERED: ONDANSETRON 4 MG/2 ML VIAL IVPB PRN (14:58)
[2022-04-01] MEDS ORDERED: ACETAMINOPHEN 1000 MG/100 ML BAG IVPB ONE (17:56)
[2022-04-01] MEDS: morphine SULFATE 4 MG/ML VIAL IVPUSH PRN ×2 (18:47→22:26)
[2022-04-01] MEDS: morphine SO4 SUSTAINED ACTING 30 MG TABLET.SA PO SCH (21:21)
[2022-04-02] MEDS: morphine SULFATE 4 MG/ML VIAL IVPUSH PRN ×3 (02:11→10:12)
[2022-04-02] MEDS: LACTATED RINGERS SOLUTION 1,000 ML IV SCH ×4 (03:09→12:53)
[2022-04-02] MEDS: NICOTINE 21 MG/24 HOURS TOPICAL PATCH TD SCH (09:36)
[2022-04-02] MEDS: morphine SO4 SUSTAINED ACTING 30 MG TABLET.SA PO SCH (09:37)
[2022-04-02] MEDS: DOCUSATE SODIUM 100 MG CAPSULE (FP) PO SCH (09:39)
[2022-04-02] MEDS: FOLIC ACID 1 MG TABLET (FP) PO SCH (09:39)
[2022-04-02] MEDS: ENOXAPARIN NA (PORCINE) 40 MG/0.4 ML DISP.SYRIN SQ SCH (09:42)
[2022-04-02] MEDS: THIAMINE HCL 200 MG/2 ML VIAL IVPB SCH (09:45)
[2022-04-02 10:00] LABS: BASO % 0.2 % (0-2.0); HEMATOCRIT 40.8 % (35.4-49); HEMOGLOBIN 14.1 GM/dL (11.7-16.9); LYMPH % 11.9 % (8-40); MCH 30.7 pg (25.7-33.7); MCHC 34.7 g/dl (32.0-35.9); MEAN CELL VOLUME 88.7 fl (80-96); MEAN PLT VOLUME 8.6 fl (7.5-11.1); MONO % 7.5 % (3.8-10.2); NEUT % 79.4 % (42.8-82.8); PLATELET COUNT 178 10^3/uL (134-434); RDW 14.1 % (11.9-15.9); WHITE BLOOD COUNT 10.5 K/mm3 (4.0-10.0)
[2022-04-02 10:03] LABS: INR 1.02 (0.83-1.09); PROTHROMBIN TIME (PATIENT) 11.8 SEC (9.7-13.0)
[2022-04-02 10:06] LABS: ACTIVATED PTT 27.9 SECONDS (25.2-36.5)
[2022-04-02 10:11] LABS: CHLORIDE 102 mmol/L (98-107); SODIUM 139 mmol/L (136-145)
[2022-04-02 10:21] LABS: CALCIUM 8.9 mg/dL (8.5-10.1)
[2022-04-02 10:22] LABS: ANION GAP 11 MMOL/L (8-16); CO2 25 mmol/L (21-32); GLUCOSE,RANDOM 95 mg/dL (74-106); MAGNESIUM 1.7 mg/dL (1.8-2.4)
[2022-04-02 10:25] LABS: CREATININE 0.6 mg/dL (0.55-1.3); PHOSPHOROUS 3.8 mg/dL (2.5-4.9); SGOT/AST 11 U/L (15-37); SGPT/ALT 17 U/L (13-61)
[2022-04-02 10:26] LABS: BILIRUBIN,TOTAL 0.7 mg/dL (0.2-1)
[2022-04-02 10:28] LABS: ALK PHOS 69 U/L (45-117)
[2022-04-02 10:48] LABS: ALBUMIN 3.1 g/dl (3.4-5.0); TOT PROT 6.3 g/dl (6.4-8.2)
[2022-04-02 11:10] LABS: BLOOD UREA NITROGEN 2.2 mg/dL (7-18)
[2022-04-02] MEDS: KCL 10 MEQ IVPB 10 MEQ/100 ML INFUS.BAG IVPB SCH ×4 (12:03→20:34)
[2022-04-02] MEDS ORDERED: POTASSIUM CHLORIDE TABS 20 MEQ TABLET.ER (FP) PO ONE (14:59)
[2022-04-02] MEDS ORDERED: MAGNESIUM SULF 50% (8.12 MEQ/2 ML-1 GM VIAL) IVPB ONE (16:03)
[2022-04-03] MEDS: LACTATED RINGERS SOLUTION 1,000 ML IV SCH ×2 (02:38→14:15)
[2022-04-03] MEDS: NICOTINE 21 MG/24 HOURS TOPICAL PATCH TD SCH (09:01)
[2022-04-03] MEDS: ENOXAPARIN NA (PORCINE) 40 MG/0.4 ML DISP.SYRIN SQ SCH (09:01)
[2022-04-03] MEDS: THIAMINE HCL 200 MG/2 ML VIAL IVPB SCH (09:01)
[2022-04-03] MEDS ORDERED: MULTIVITAMINS (DAILY MVI) TABLET (FP) PO SCH (10:00)
[2022-04-03 11:06] LABS: BASO % 0.5 % (0-2.0); EOS % 2.4 % (0-4.5); HEMATOCRIT 38.5 % (35.4-49); HEMOGLOBIN 13.3 GM/dL (11.7-16.9); LYMPH % 17.6 % (8-40); MCH 30.8 pg (25.7-33.7); MCHC 34.7 g/dl (32.0-35.9); MEAN CELL VOLUME 88.9 fl (80-96); MEAN PLT VOLUME 8.7 fl (7.5-11.1); MONO % 10.7 % (3.8-10.2); NEUT % 68.8 % (42.8-82.8); PLATELET COUNT 174 10^3/uL (134-434); RBC 4.33 M/mm3 (4.00-5.60); RDW 14.1 % (11.9-15.9); WHITE BLOOD COUNT 7.2 K/mm3 (4.0-10.0)
[2022-04-03 11:29] LABS: CHLORIDE 101 mmol/L (98-107); SODIUM 138 mmol/L (136-145)
[2022-04-03 11:39] LABS: ALBUMIN 2.8 g/dl (3.4-5.0); GLUCOSE,RANDOM 102 mg/dL (74-106)
[2022-04-03 11:40] LABS: CALCIUM 8.7 mg/dL (8.5-10.1)
[2022-04-03 11:41] LABS: ANION GAP 9 MMOL/L (8-16); CO2 28 mmol/L (21-32); CREATININE 0.6 mg/dL (0.55-1.3); MAGNESIUM 1.9 mg/dL (1.8-2.4); PHOSPHOROUS 3.2 mg/dL (2.5-4.9); SGOT/AST 12 U/L (15-37); SGPT/ALT 14 U/L (13-61)
[2022-04-03 11:43] LABS: BILIRUBIN,TOTAL 0.5 mg/dL (0.2-1)
[2022-04-03 11:44] LABS: ALK PHOS 60 U/L (45-117)
[2022-04-03 11:45] LABS: BLOOD UREA NITROGEN 2.3 mg/dL (7-18); LIPASE 1411 U/L (73-393)
[2022-04-03 14:12] VITALS: RESP 18
[2022-04-03] MEDS: KCL 10 MEQ IVPB 10 MEQ/100 ML INFUS.BAG IVPB SCH ×2 (14:15→16:59)
[2022-04-04] MEDS: ENOXAPARIN NA (PORCINE) 40 MG/0.4 ML DISP.SYRIN SQ SCH (09:26)
[2022-04-04] MEDS: NICOTINE 21 MG/24 HOURS TOPICAL PATCH TD SCH (09:26)
[2022-04-04] MEDS: THIAMINE HCL 200 MG/2 ML VIAL IVPB SCH (09:26)
[2022-04-04] MEDS: LACTATED RINGERS SOLUTION 1,000 ML IV SCH (09:27)
[2022-04-04 11:21] LABS: BASO % 0.9 % (0-2.0); HEMATOCRIT 39.1 % (35.4-49); HEMOGLOBIN 13.5 GM/dL (11.7-16.9); LYMPH % 22.3 % (8-40); MCH 30.7 pg (25.7-33.7); MCHC 34.6 g/dl (32.0-35.9); MEAN CELL VOLUME 88.7 fl (80-96); MEAN PLT VOLUME 8.6 fl (7.5-11.1); MONO % 11.6 % (3.8-10.2); NEUT % 61.2 % (42.8-82.8); PLATELET COUNT 204 10^3/uL (134-434); RBC 4.41 M/mm3 (4.00-5.60); RDW 13.9 % (11.9-15.9); WHITE BLOOD COUNT 5.2 K/mm3 (4.0-10.0)
[2022-04-04] MEDS ORDERED: LACTATED RINGERS SOLUTION 1,000 ML IV SCH (11:24)
[2022-04-04 11:28] LABS: CHLORIDE 99 mmol/L (98-107); SODIUM 139 mmol/L (136-145)
[2022-04-04 11:32] LABS: ALBUMIN 3.1 g/dl (3.4-5.0); ANION GAP 12 MMOL/L (8-16); CALCIUM 9.2 mg/dL (8.5-10.1); CO2 27 mmol/L (21-32); GLUCOSE,RANDOM 84 mg/dL (74-106); LIPASE 1086 U/L (73-393); MAGNESIUM 1.7 mg/dL (1.8-2.4)
[2022-04-04 11:35] LABS: CREATININE 0.6 mg/dL (0.55-1.3); PHOSPHOROUS 3.6 mg/dL (2.5-4.9); SGOT/AST 15 U/L (15-37); SGPT/ALT 15 U/L (13-61)
[2022-04-04 11:36] LABS: BILIRUBIN,TOTAL 0.7 mg/dL (0.2-1); TOT PROT 6.5 g/dl (6.4-8.2)
[2022-04-04 11:38] LABS: ALK PHOS 61 U/L (45-117)
[2022-04-04 11:50] LABS: BLOOD UREA NITROGEN 2.2 mg/dL (7-18)
[2022-04-04] MEDS ORDERED: ACETAMINOPHEN 1000 MG/100 ML BAG IVPB ONE (20:28)
[2022-04-05] MEDS ORDERED: ACETAMINOPHEN 1000 MG/100 ML BAG IVPB ONE (05:41)
[2022-04-05 06:54] VITALS: BP 161/97; PULSE 70; TEMP 98.7
[2022-04-05] MEDS ORDERED: MAGNESIUM OXIDE 400 MG TABLET (FP) PO ONE (08:30)
== END 2022-04-05 08:36 | disposition left against medical advice (07) | DRG 282 ==
LOC: JER 21:59 → JERBED 04-01 02:36 → J5S 04-01 09:03
PROVIDERS: ADMIT Internal Medicine; ATTEND Internal Medicine
PROC: HZ2ZZZZ Detoxification Services for Substance Abuse Treatment (ICD-10-PCS; principal; 2022-03-31)
DX: K85.20 Alcohol induced acute pancreatitis without necrosis or infection (principal); E87.6 Hypokalemia; F10.20 Alcohol dependence, uncomplicated; F17.210 Nicotine dependence, cigarettes, uncomplicated; J45.909 Unspecified asthma, uncomplicated
CPT/HCPCS: 36415; 74177-TC; 80048; 80053; 80076; 83690; 83735; 84100; 85025; 85610; 85730; 86140; 99285-25; C9803-CS; Q9967; U0003; U0005

== ENCOUNTER 2022-07-24 09:17 | Inpatient (IN) | payer OTHER ==
[2022-07-24 09:40] VITALS: BMI 22.1
[2022-07-24] MEDS ORDERED: morphine CARPU-JECT 4 MG/1 ML DISP.SYRIN IVPUSH ONE (09:54)
[2022-07-24] MEDS ORDERED: ONDANSETRON 4 MG/2 ML VIAL IVPUSH ONE ×2 (09:54→10:47)
[2022-07-24] MEDS ORDERED: SODIUM CHLORIDE 1,000 ML IV STA (09:54)
[2022-07-24] MEDS ORDERED: FAMOTIDINE 20 MG/50 ML IVPB 20 MG/50 ML MG IVPB ONE ×2 (09:54→10:01)
[2022-07-24] MEDS ORDERED: ONDANSETRON 4 MG/2 ML VIAL ONE ×2 (10:01→11:32)
[2022-07-24] MEDS ORDERED: morphine SULFATE 4 MG/ML VIAL ONE (10:01)
[2022-07-24 10:05] LABS: BASO % 0.6 % (0-2.0); EOS % 1.6 % (0-4.5); HEMATOCRIT 43.7 % (35.4-49); HEMOGLOBIN 14.7 GM/dL (11.7-16.9); LYMPH % 17.4 % (8-40); MCH 30.2 pg (25.7-33.7); MCHC 33.7 g/dl (32.0-35.9); MEAN CELL VOLUME 89.6 fl (80-96); MEAN PLT VOLUME 8.7 fl (7.5-11.1); MONO % 8.3 % (3.8-10.2); NEUT % 72.1 % (42.8-82.8); PLATELET COUNT 231 10^3/uL (134-434); RBC 4.88 M/mm3 (4.00-5.60); RDW 13.9 % (11.9-15.9); WHITE BLOOD COUNT 8.5 K/mm3 (4.0-10.0)
[2022-07-24 10:24] LABS: POTASSIUM 4.1 mmol/L (3.5-5.1)
[2022-07-24 10:27] LABS: ALBUMIN 4.2 g/dl (3.4-5.0); BLOOD UREA NITROGEN 7.8 mg/dL (7-18)
[2022-07-24 10:31] LABS: BILIRUBIN,TOTAL 0.8 mg/dL (0.2-1)
[2022-07-24] MEDS ORDERED: LORazepam 2 MG TABLET PO PRN (12:05)
[2022-07-24] MEDS ORDERED: morphine CARPU-JECT 2 MG/1 ML DISP.SYRIN IVPUSH PRN (12:06)
[2022-07-24] MEDS ORDERED: FOLIC ACID 1 MG TABLET (FP) PO ONE ×2 (12:13→18:45)
[2022-07-24] MEDS ORDERED: LACTATED RINGERS SOLUTION 1,000 ML/1,000 ML INFUS.BAG IV SCH (12:15)
[2022-07-24] MEDS: LACTATED RINGERS SOLUTION 1,000 ML/1,000 ML INFUS.BAG IV SCH ×2 (13:46→18:55)
[2022-07-24] MEDS: ONDANSETRON 4 MG/2 ML VIAL IVPUSH PRN ×2 (13:47→19:38)
[2022-07-24] MEDS: CYANOCOBALAMIN 1,000 MCG TABLET (FP) PO SCH (13:49)
[2022-07-24] MEDS: THIAMINE HCL 100 MG TABLET (FP) PO SCH (13:49)
[2022-07-24] MEDS: PANTOPRAZOLE SODIUM 40 MG VIAL IVPUSH SCH (16:03)
[2022-07-24] MEDS: LORazepam 1 MG TABLET PO PRN (18:46)
[2022-07-24] MEDS: ACETAMINOPHEN 500 MG TABLET (FP) PO PRN (19:38)
[2022-07-24 23:14] LABS: METHADONE, UR NEGATIVE (NEGATIVE); PHENCYCLIDINE,URINE NEGATIVE (NEGATIVE); URINE BARBITURATES NEGATIVE (NEGATIVE)
[2022-07-24 23:15] LABS: COCAINE, UR NEGATIVE (NEGATIVE)
[2022-07-24 23:19] LABS: OPIATES, URI POSITIVE (NEGATIVE); URINE AMPHETAMINES POSITIVE (NEGATIVE); URINE BENZODIAZEPINES NEGATIVE (NEGATIVE)
[2022-07-25] MEDS: LACTATED RINGERS SOLUTION 1,000 ML/1,000 ML INFUS.BAG IV SCH ×4 (01:41→20:49)
[2022-07-25] MEDS: LORazepam 1 MG TABLET PO PRN (03:06)
[2022-07-25] MEDS: ACETAMINOPHEN 500 MG TABLET (FP) PO PRN ×3 (03:09→14:47)
[2022-07-25 07:44] LABS: BASO % 0.2 % (0-2.0); EOS % 0.4 % (0-4.5); HEMATOCRIT 42.8 % (35.4-49); LYMPH % 9.5 % (8-40); MCHC 35.1 g/dl (32.0-35.9); MEAN CELL VOLUME 88.3 fl (80-96); MEAN PLT VOLUME 9.3 fl (7.5-11.1); MONO % 9.1 % (3.8-10.2); NEUT % 80.8 % (42.8-82.8); PLATELET COUNT 185 10^3/uL (134-434); RBC 4.85 M/mm3 (4.00-5.60); RDW 13.5 % (11.9-15.9)
[2022-07-25 07:58] LABS: POTASSIUM 3.6 mmol/L (3.5-5.1)
[2022-07-25 08:02] LABS: CALCIUM 9.6 mg/dL (8.5-10.1)
[2022-07-25 08:03] LABS: MAGNESIUM 2.2 mg/dL (1.8-2.4)
[2022-07-25 08:05] LABS: ALBUMIN 3.7 g/dl (3.4-5.0)
[2022-07-25 08:06] LABS: CREATININE 0.7 mg/dL (0.55-1.3)
[2022-07-25 08:08] LABS: PHOSPHOROUS 4.3 mg/dL (2.5-4.9); TOT PROT 7.2 g/dl (6.4-8.2)
[2022-07-25 08:09] LABS: BILIRUBIN,TOTAL 1.1 mg/dL (0.2-1)
[2022-07-25] MEDS: PANTOPRAZOLE SODIUM 40 MG VIAL IVPUSH SCH (10:01)
[2022-07-25] MEDS: CYANOCOBALAMIN 1,000 MCG TABLET (FP) PO SCH (10:02)
[2022-07-25] MEDS: THIAMINE HCL 100 MG TABLET (FP) PO SCH (10:02)
[2022-07-25] MEDS: ENOXAPARIN NA (PORCINE) 40 MG/0.4 ML DISP.SYRIN SQ SCH (10:02)
[2022-07-25] MEDS ORDERED: NICOTINE 14 MG/24 HOURS TOPICAL PATCH TD SCH (19:15)
[2022-07-25] MEDS: NICOTINE 21 MG/24 HOURS TOPICAL PATCH TD SCH (19:58)
[2022-07-26] MEDS: LACTATED RINGERS SOLUTION 1,000 ML/1,000 ML INFUS.BAG IV SCH ×5 (04:59→21:08)
[2022-07-26 07:41] LABS: POTASSIUM 3.5 mmol/L (3.5-5.1)
[2022-07-26 07:44] LABS: CALCIUM 9.2 mg/dL (8.5-10.1)
[2022-07-26 07:45] LABS: ALBUMIN 3.3 g/dl (3.4-5.0); MAGNESIUM 1.8 mg/dL (1.8-2.4)
[2022-07-26 07:47] LABS: AMYLASE 222 U/L (25-115)
[2022-07-26 07:48] LABS: BLOOD UREA NITROGEN 3.1 mg/dL (7-18); CREATININE 0.6 mg/dL (0.55-1.3); PHOSPHOROUS 3.2 mg/dL (2.5-4.9)
[2022-07-26 07:49] LABS: TOT PROT 6.4 g/dl (6.4-8.2)
[2022-07-26 07:50] LABS: BILIRUBIN,TOTAL 0.8 mg/dL (0.2-1)
[2022-07-26 07:57] LABS: LIPASE 1335 U/L (73-393)
[2022-07-26 08:38] LABS: BASO % 0.3 % (0-2.0); EOS % 2.4 % (0-4.5); HEMATOCRIT 41.3 % (35.4-49); HEMOGLOBIN 14.2 GM/dL (11.7-16.9); LYMPH % 15.1 % (8-40); MCH 30.7 pg (25.7-33.7); MCHC 34.4 g/dl (32.0-35.9); MEAN CELL VOLUME 89.1 fl (80-96); MEAN PLT VOLUME 9.7 fl (7.5-11.1); MONO % 9.9 % (3.8-10.2); NEUT % 72.3 % (42.8-82.8); PLATELET COUNT 172 10^3/uL (134-434); RBC 4.64 M/mm3 (4.00-5.60); RDW 13.3 % (11.9-15.9); WHITE BLOOD COUNT 9.4 K/mm3 (4.0-10.0)
[2022-07-26] MEDS: ENOXAPARIN NA (PORCINE) 40 MG/0.4 ML DISP.SYRIN SQ SCH (09:36)
[2022-07-26] MEDS: THIAMINE HCL 100 MG TABLET (FP) PO SCH (09:36)
[2022-07-26] MEDS: CYANOCOBALAMIN 1,000 MCG TABLET (FP) PO SCH (09:36)
[2022-07-26] MEDS: NICOTINE 21 MG/24 HOURS TOPICAL PATCH TD SCH (09:37)
[2022-07-26] MEDS: PANTOPRAZOLE SODIUM 40 MG VIAL IVPUSH SCH (09:37)
[2022-07-26] MEDS ORDERED: ACETAMINOPHEN 1000 MG/100 ML BAG IVPB PRN (20:11)
[2022-07-27 07:41] LABS: BASO % 0.8 % (0-2.0); EOS % 4.8 % (0-4.5); HEMATOCRIT 38.6 % (35.4-49); HEMOGLOBIN 13.5 GM/dL (11.7-16.9); LYMPH % 20.1 % (8-40); MCH 30.9 pg (25.7-33.7); MEAN CELL VOLUME 88.3 fl (80-96); MEAN PLT VOLUME 9.5 fl (7.5-11.1); MONO % 12.6 % (3.8-10.2); NEUT % 61.7 % (42.8-82.8); PLATELET COUNT 166 10^3/uL (134-434); RBC 4.38 M/mm3 (4.00-5.60); WHITE BLOOD COUNT 6.2 K/mm3 (4.0-10.0)
[2022-07-27 08:16] LABS: POTASSIUM 3.5 mmol/L (3.5-5.1)
[2022-07-27 08:18] LABS: CALCIUM 9.1 mg/dL (8.5-10.1)
[2022-07-27 08:19] LABS: MAGNESIUM 1.7 mg/dL (1.8-2.4)
[2022-07-27 08:22] LABS: CREATININE 0.6 mg/dL (0.55-1.3); PHOSPHOROUS 3.3 mg/dL (2.5-4.9)
[2022-07-27 08:23] LABS: BILIRUBIN,TOTAL 0.7 mg/dL (0.2-1); TOT PROT 6.3 g/dl (6.4-8.2)
[2022-07-27 08:51] VITALS: BP 147/87; PULSE 74; RESP 18; TEMP 98.1
[2022-07-27] MEDS: ENOXAPARIN NA (PORCINE) 40 MG/0.4 ML DISP.SYRIN SQ SCH (09:15)
[2022-07-27] MEDS: NICOTINE 21 MG/24 HOURS TOPICAL PATCH TD SCH (09:16)
[2022-07-27] MEDS ORDERED: PANTOPRAZOLE 40 MG TABLET PO SCH (10:00)
[2022-07-27] MEDS: LACTATED RINGERS SOLUTION 1,000 ML/1,000 ML INFUS.BAG IV SCH (11:03)
[2022-07-27] MEDS: THIAMINE HCL 100 MG TABLET (FP) PO SCH (11:03)
[2022-07-27] MEDS: CYANOCOBALAMIN 1,000 MCG TABLET (FP) PO SCH (11:03)
== END 2022-07-27 11:10 | disposition left against medical advice (07) | DRG 282 ==
LOC: JER 09:17 → JERBED 11:37 → UNDOADMOB 11:37 → INTOOBSV 11:37 → JERBED 11:38 → J7W 13:39 → OBSVTOIN 07-25 10:02
PROVIDERS: ADMIT Internal Medicine
DX: K85.20 Alcohol induced acute pancreatitis without necrosis or infection (principal); I10 Essential (primary) hypertension; J45.909 Unspecified asthma, uncomplicated; F19.90 Other psychoactive substance use, unspecified, uncomplicated; F17.210 Nicotine dependence, cigarettes, uncomplicated; F10.20 Alcohol dependence, uncomplicated
CPT/HCPCS: 36415; 74177-TC; 80053; 80061; 80307; 82150; 83690; 83735; 84100; 85025; 86140; 86301; 87635; 93005; 93010; 99285-25; G0378; Q9967

== ENCOUNTER → 2022-08-22 | Emergency (ER) | payer OTHER ==
[2022-08-22 17:47] VITALS: BP 121/78; PULSE 122; RESP 18; TEMP 98.2; BMI 23.6
== END ==
LOC: JERFT 17:38
DX: S61.214A Laceration without foreign body of right ring finger without damage to nail, initial encounter (principal); S01.511A Laceration without foreign body of lip, initial encounter; X58.XXXA Exposure to other specified factors, initial encounter; Y93.9 Activity, unspecified; Y92.9 Unspecified place or not applicable
CPT/HCPCS: 99281-25

== ENCOUNTER 2022-12-14 02:07 | Emergency (ER) | payer OTHER ==
[2022-12-14 02:14] VITALS: BP 163/99; PULSE 97; RESP 18; TEMP 98; BMI 22.8
[2022-12-14] MEDS ORDERED: ACETAMINOPHEN 500 MG TABLET (FP) PO ONE (02:47)
[2022-12-14] MEDS ORDERED: ACETAMINOPHEN 325 MG TABLET (FP) ONE (02:56)
== END 2022-12-14 03:40 | disposition home or self-care (01) ==
LOC: JER 02:07
DX: R07.89 Other chest pain (principal); R11.10 Vomiting, unspecified; F19.10 Other psychoactive substance abuse, uncomplicated
CPT/HCPCS: 71046-TC-FY; 93005; 93010; 99284-25

== ENCOUNTER 2023-01-06 17:43 | Inpatient (IN) | payer OTHER ==
[2023-01-06] MEDS ORDERED: FAMOTIDINE 20 MG/50 ML IVPB 20 MG/50 ML MG IVPB ONE ×2 (19:15→20:13)
[2023-01-06] MEDS ORDERED: ONDANSETRON 4 MG/2 ML VIAL IVPUSH ONE (19:15)
[2023-01-06] MEDS ORDERED: MAG HYDROX/AL HYDROX/SIMETH 30 ML UNIT-DOSE CUP PO ONE (19:15)
[2023-01-06] MEDS ORDERED: ACETAMINOPHEN 1000 MG/100 ML BAG IVPB ONE (19:15)
[2023-01-06] MEDS ORDERED: LACTATED RINGERS SOLUTION 1000 ML INFUS.BAG IV ONE (19:16)
[2023-01-06] MEDS ORDERED: MAG HYDROX/AL HYDROX/SIMETH 30 ML UNIT-DOSE CUP ONE (20:13)
[2023-01-06] MEDS ORDERED: ACETAMINOPHEN INJECTION 100 ML IVPB ONE (20:13)
[2023-01-06] MEDS ORDERED: ONDANSETRON 4 MG/2 ML VIAL ONE (20:13)
[2023-01-06 20:24] LABS: BASO % 0.7 % (0-2.0); EOS % 0.4 % (0-4.5); HEMATOCRIT 41.6 % (35.4-49); HEMOGLOBIN 14.2 GM/dL (11.7-16.9); LYMPH % 14.1 % (8-40); MCH 28.9 pg (25.7-33.7); MCHC 34.1 g/dl (32.0-35.9); MEAN CELL VOLUME 84.9 fl (80-96); MEAN PLT VOLUME 8.3 fl (7.5-11.1); MONO % 7.9 % (3.8-10.2); NEUT % 76.9 % (42.8-82.8); PLATELET COUNT 232 10^3/uL (134-434); RDW 13.7 % (11.9-15.9); WHITE BLOOD COUNT 9.9 K/mm3 (4.0-10.0)
[2023-01-06 20:46] LABS: POTASSIUM 3.2 mmol/L (3.5-5.1)
[2023-01-06 20:49] LABS: ALBUMIN 4.3 g/dl (3.4-5.0); BLOOD UREA NITROGEN 7.9 mg/dL (7-18); CALCIUM 10.1 mg/dL (8.5-10.1); MAGNESIUM 1.7 mg/dL (1.8-2.4)
[2023-01-06 20:52] LABS: CREATININE 0.8 mg/dL (0.55-1.3)
[2023-01-06 20:53] LABS: TOT PROT 8.1 g/dl (6.4-8.2)
[2023-01-06 20:54] LABS: BILIRUBIN,TOTAL 0.8 mg/dL (0.2-1)
[2023-01-06] MEDS ORDERED: morphine CARPU-JECT 4 MG/1 ML DISP.SYRIN IVPUSH ONE (21:25)
[2023-01-06] MEDS ORDERED: morphine SULFATE 4 MG/ML VIAL ONE (21:30)
[2023-01-06] MEDS ORDERED: MAGNESIUM SULF 50% (8.12 MEQ/2 ML-1 GM VIAL) IVPB ONE (23:25)
[2023-01-06] MEDS ORDERED: MAGNESIUM 1GM/D5W - 1 GM/100 ML IVPB IVPB ONE (23:46)
[2023-01-07] MEDS ORDERED: morphine CARPU-JECT 4 MG/1 ML DISP.SYRIN IVPUSH ONE ×2 (01:07→04:01)
[2023-01-07] MEDS ORDERED: morphine SULFATE 4 MG/ML VIAL ONE ×2 (01:10→04:04)
[2023-01-07 03:46] LABS: PH,URINE 5.5 (5.0-8.0); URINE APPEARANCE CLEAR; URINE BILIRUBIN NEGATIVE (NEGATIVE); URINE COLOR YELLOW; URINE GLUCOSE (UA) 1+ (NEGATIVE); URINE KETONE 1+ (NEGATIVE); URINE LEUK ESTERASE NEGATIVE (NEGATIVE); URINE NITRITE NEGATIVE (NEGATIVE); URINE PROTEIN NEGATIVE (NEGATIVE); URINE UROBILINOGEN 0.2 mg/dL (0.2-1.0)
[2023-01-07] MEDS ORDERED: LACTATED RINGERS SOLUTION 1000 ML INFUS.BAG IV ONE (03:53)
[2023-01-07] MEDS ORDERED: DOCUSATE SODIUM 100 MG CAPSULE (FP) PO PRN (04:27)
[2023-01-07] MEDS ORDERED: ONDANSETRON 4 MG/2 ML VIAL IVPUSH PRN (04:27)
[2023-01-07] MEDS ORDERED: ACETAMINOPHEN 1000 MG/100 ML BAG IVPB PRN (04:32)
[2023-01-07] MEDS: SODIUM CHLORIDE 1,000 ML IV SCH ×2 (05:39→16:31)
[2023-01-07] MEDS ORDERED: ALBUTEROL SO4 HFA INHALER IH PRN (05:56)
[2023-01-07 07:22] LABS: BASO % 0.3 % (0-2.0); EOS % 0.4 % (0-4.5); HEMATOCRIT 39.7 % (35.4-49); HEMOGLOBIN 13.4 GM/dL (11.7-16.9); MCH 28.9 pg (25.7-33.7); MCHC 33.6 g/dl (32.0-35.9); MEAN CELL VOLUME 86.1 fl (80-96); MEAN PLT VOLUME 8.3 fl (7.5-11.1); MONO % 7.8 % (3.8-10.2); NEUT % 76.5 % (42.8-82.8); PLATELET COUNT 209 10^3/uL (134-434); RBC 4.62 M/mm3 (4.00-5.60); RDW 13.6 % (11.9-15.9); WHITE BLOOD COUNT 9.3 K/mm3 (4.0-10.0)
[2023-01-07 07:28] LABS: POTASSIUM 3.2 mmol/L (3.5-5.1)
[2023-01-07 07:29] LABS: CALCIUM 9.2 mg/dL (8.5-10.1)
[2023-01-07 07:30] LABS: BLOOD UREA NITROGEN 3.9 mg/dL (7-18)
[2023-01-07 07:33] LABS: CREATININE 0.6 mg/dL (0.55-1.3)
[2023-01-07 07:34] LABS: INR 1.02 (0.83-1.09); PROTHROMBIN TIME (PATIENT) 11.8 SEC (9.7-13.0)
[2023-01-07 07:36] LABS: ACTIVATED PTT 28.5 SECONDS (25.2-36.5)
[2023-01-07 17:18] VITALS: BMI 22.7
[2023-01-08] MEDS: SODIUM CHLORIDE 1,000 ML IV SCH ×2 (01:03→04:29)
[2023-01-08] MEDS ORDERED: ACETAMINOPHEN 325 MG TABLET (FP) PO PRN (04:27)
[2023-01-08 09:04] VITALS: BP 132/78; PULSE 82; RESP 19; TEMP 97.8
[2023-01-08] MEDS ORDERED: LACTATED RINGERS SOLUTION 1,000 ML/1,000 ML INFUS.BAG IV SCH (11:00)
== END 2023-01-08 13:20 | disposition left against medical advice (07) | DRG 282 ==
LOC: JER 17:43 → JERBED 01-07 04:03 → J5S 01-07 15:58
PROVIDERS: ADMIT Internal Medicine; ATTEND Internal Medicine
DX: K85.20 Alcohol induced acute pancreatitis without necrosis or infection (principal); I10 Essential (primary) hypertension; F10.10 Alcohol abuse, uncomplicated; R10.9 Unspecified abdominal pain; F17.210 Nicotine dependence, cigarettes, uncomplicated; E87.6 Hypokalemia
CPT/HCPCS: 36415; 71046-TC-FY; 74177-TC; 80048; 80053; 81003; 83605; 83690; 83735; 84100; 84484; 85025; 85610; 85730; 87086; 99285-25

== ENCOUNTER 2023-03-16 14:23 | Inpatient (IN) | payer OTHER ==
[2023-03-16] MEDS ORDERED: SODIUM CHLORIDE 0.9% 500 ML INFUS.BAG IV ONE ×2 (14:34→17:54)
[2023-03-16] MEDS ORDERED: ONDANSETRON 4 MG/2 ML VIAL IVPUSH ONE (14:57)
[2023-03-16] MEDS ORDERED: FAMOTIDINE 20 MG/50 ML IVPB 20 MG/50 ML MG IVPB ONE (14:58)
[2023-03-16] MEDS ORDERED: morphine CARPU-JECT 4 MG/1 ML DISP.SYRIN IVPUSH ONE ×2 (14:58→18:05)
[2023-03-16 15:02] LABS: BASO % 0.3 % (0-2.0); EOS % 0.6 % (0-4.5); HEMATOCRIT 46.8 % (35.4-49); HEMOGLOBIN 15.6 GM/dL (11.7-16.9); LYMPH % 13.7 % (8-40); MCH 29.7 pg (25.7-33.7); MCHC 33.4 g/dl (32.0-35.9); MEAN PLT VOLUME 8.8 fl (7.5-11.1); MONO % 7.1 % (3.8-10.2); NEUT % 78.3 % (42.8-82.8); PLATELET COUNT 333 10^3/uL (134-434); RBC 5.25 M/mm3 (4.00-5.60); RDW 14.6 % (11.9-15.9); WHITE BLOOD COUNT 10.1 K/mm3 (4.0-10.0)
[2023-03-16] MEDS ORDERED: ONDANSETRON 4 MG/2 ML VIAL ONE (15:10)
[2023-03-16] MEDS ORDERED: morphine SULFATE 4 MG/ML VIAL ONE ×2 (15:10→18:10)
[2023-03-16] MEDS ORDERED: FAMOTIDINE 10 MG/ML VIAL IVPB ONE (15:11)
[2023-03-16 15:22] LABS: ALBUMIN 4.2 g/dl (3.4-5.0); CALCIUM 10.1 mg/dL (8.5-10.1)
[2023-03-16 15:23] LABS: BLOOD UREA NITROGEN 6.1 mg/dL (7-18); MAGNESIUM 2.1 mg/dL (1.8-2.4)
[2023-03-16 15:25] LABS: CREATININE 0.9 mg/dL (0.55-1.3)
[2023-03-16 15:27] LABS: BILIRUBIN,TOTAL 0.5 mg/dL (0.2-1); TOT PROT 8.8 g/dl (6.4-8.2)
[2023-03-16] MEDS ORDERED: MAG HYDROX/ALH/SMC/DPHA/LIDO 240 ML MOUTHWASH MM ONE (17:33)
[2023-03-16] MEDS ORDERED: ACETAMINOPHEN 1000 MG/100 ML BAG IVPB ONE (18:05)
[2023-03-16] MEDS ORDERED: ACETAMINOPHEN INJECTION 100 ML IVPB ONE ×2 (18:10→22:40)
[2023-03-16] MEDS ORDERED: ACETAMINOPHEN 1000 MG/100 ML BAG IVPB PRN (20:31)
[2023-03-16] MEDS ORDERED: LACTATED RINGERS SOLUTION 1,000 ML/1,000 ML INFUS.BAG IV SCH (20:45)
[2023-03-16] MEDS ORDERED: PANTOPRAZOLE SODIUM 40 MG VIAL ONE (22:41)
[2023-03-16] MEDS: PANTOPRAZOLE SODIUM 40 MG VIAL IVPUSH SCH (22:45)
[2023-03-16] MEDS ORDERED: ALBUTEROL SO4 HFA INHALER IH PRN (23:33)
[2023-03-17 07:30] LABS: EOS % 3.4 % (0-4.5); HEMATOCRIT 40.1 % (35.4-49); LYMPH % 34.8 % (8-40); MCH 29.3 pg (25.7-33.7); MCHC 32.5 g/dl (32.0-35.9); MEAN CELL VOLUME 89.9 fl (80-96); MEAN PLT VOLUME 8.6 fl (7.5-11.1); MONO % 9.6 % (3.8-10.2); NEUT % 51.2 % (42.8-82.8); PLATELET COUNT 228 10^3/uL (134-434); RBC 4.45 M/mm3 (4.00-5.60); RDW 14.4 % (11.9-15.9); WHITE BLOOD COUNT 5.6 K/mm3 (4.0-10.0)
[2023-03-17 07:40] LABS: POTASSIUM 3.7 mmol/L (3.5-5.1)
[2023-03-17 07:48] LABS: CALCIUM 9.1 mg/dL (8.5-10.1); MAGNESIUM 1.7 mg/dL (1.8-2.4)
[2023-03-17 07:51] LABS: BILIRUBIN,TOTAL 0.7 mg/dL (0.2-1)
[2023-03-17 07:52] LABS: BLOOD UREA NITROGEN 5.1 mg/dL (7-18); CREATININE 0.8 mg/dL (0.55-1.3); PHOSPHOROUS 4.2 mg/dL (2.5-4.9)
[2023-03-17 07:57] LABS: ALBUMIN 3.3 g/dl (3.4-5.0); TOT PROT 6.5 g/dl (6.4-8.2)
[2023-03-17] MEDS ORDERED: ACETAMINOPHEN INJECTION 100 ML IVPB ONE ×2 (08:06→08:31)
[2023-03-17] MEDS: PANTOPRAZOLE SODIUM 40 MG VIAL IVPUSH SCH (11:40)
[2023-03-17] MEDS: VALSARTAN 80 MG TABLET PO SCH (11:41)
[2023-03-17] MEDS: HYDROCHLOROTHIAZIDE 25 MG TABLET (FP) PO SCH (11:41)
[2023-03-17] MEDS: ENOXAPARIN NA (PORCINE) 40 MG/0.4 ML DISP.SYRIN SQ SCH (11:42)
[2023-03-17] MEDS: SERTRALINE HCL 25 MG TABLET (FP) PO SCH (11:42)
[2023-03-17] MEDS: LACTATED RINGERS SOLUTION 1,000 ML/1,000 ML INFUS.BAG IV SCH (14:22)
[2023-03-17] MEDS ORDERED: MAGNESIUM SULF 50% (8.12 MEQ/2 ML-1 GM VIAL) IVPB ONE (16:19)
[2023-03-17] MEDS ORDERED: MAGNESIUM 1GM/D5W - 1 GM/100 ML IVPB IVPB ONE (16:21)
[2023-03-17 18:38] LABS: METHADONE, UR NEGATIVE (NEGATIVE); PHENCYCLIDINE,URINE NEGATIVE (NEGATIVE); URINE BARBITURATES NEGATIVE (NEGATIVE)
[2023-03-17 18:39] LABS: COCAINE, UR NEGATIVE (NEGATIVE)
[2023-03-17 19:25] LABS: OPIATES, URI POSITIVE (NEGATIVE); URINE AMPHETAMINES NEGATIVE (NEGATIVE); URINE BENZODIAZEPINES NEGATIVE (NEGATIVE)
[2023-03-18 02:40] LABS: URINE APPEARANCE CLEAR; URINE BILIRUBIN NEGATIVE (NEGATIVE); URINE COLOR YELLOW; URINE GLUCOSE (UA) NEGATIVE (NEGATIVE); URINE KETONE 3+ (NEGATIVE); URINE LEUK ESTERASE NEGATIVE (NEGATIVE); URINE NITRITE NEGATIVE (NEGATIVE); URINE PROTEIN NEGATIVE (NEGATIVE)
[2023-03-18] MEDS ORDERED: ACETAMINOPHEN INJECTION 100 ML IVPB ONE (05:57)
[2023-03-18] MEDS: HYDROCHLOROTHIAZIDE 25 MG TABLET (FP) PO SCH (10:08)
[2023-03-18] MEDS: ENOXAPARIN NA (PORCINE) 40 MG/0.4 ML DISP.SYRIN SQ SCH (10:08)
[2023-03-18] MEDS: SERTRALINE HCL 25 MG TABLET (FP) PO SCH (10:08)
[2023-03-18] MEDS: VALSARTAN 80 MG TABLET PO SCH (10:08)
[2023-03-18] MEDS: PANTOPRAZOLE SODIUM 40 MG VIAL IVPUSH SCH (10:08)
[2023-03-18] MEDS: LACTATED RINGERS SOLUTION 1,000 ML/1,000 ML INFUS.BAG IV SCH (14:19)
[2023-03-18 22:43] VITALS: BMI 23.9
[2023-03-19] MEDS: LACTATED RINGERS SOLUTION 1,000 ML/1,000 ML INFUS.BAG IV SCH ×2 (01:11→05:57)
[2023-03-19] MEDS ORDERED: ACETAMINOPHEN 1000 MG/100 ML BAG IVPB PRN (07:04)
[2023-03-19 09:27] LABS: BASO % 0.5 % (0-2.0); EOS % 0.7 % (0-4.5); HEMATOCRIT 43.4 % (35.4-49); HEMOGLOBIN 14.3 GM/dL (11.7-16.9); LYMPH % 13.9 % (8-40); MCH 29.1 pg (25.7-33.7); MCHC 32.9 g/dl (32.0-35.9); MEAN CELL VOLUME 88.6 fl (80-96); MEAN PLT VOLUME 8.5 fl (7.5-11.1); NEUT % 77.9 % (42.8-82.8); PLATELET COUNT 249 10^3/uL (134-434); RBC 4.89 M/mm3 (4.00-5.60); WHITE BLOOD COUNT 9.3 K/mm3 (4.0-10.0)
[2023-03-19] MEDS: PANTOPRAZOLE SODIUM 40 MG VIAL IVPUSH SCH (09:43)
[2023-03-19] MEDS: ENOXAPARIN NA (PORCINE) 40 MG/0.4 ML DISP.SYRIN SQ SCH (09:43)
[2023-03-19 09:44] VITALS: BP 119/85; PULSE 78; RESP 17; TEMP 97.4
[2023-03-19] MEDS: SERTRALINE HCL 25 MG TABLET (FP) PO SCH (09:44)
[2023-03-19] MEDS: VALSARTAN 80 MG TABLET PO SCH (09:44)
[2023-03-19] MEDS: HYDROCHLOROTHIAZIDE 25 MG TABLET (FP) PO SCH (09:44)
[2023-03-19 09:46] LABS: POTASSIUM 3.5 mmol/L (3.5-5.1)
[2023-03-19 09:51] LABS: CALCIUM 9.5 mg/dL (8.5-10.1)
[2023-03-19 09:52] LABS: BLOOD UREA NITROGEN 5.8 mg/dL (7-18)
[2023-03-19] MEDS ORDERED: ONDANSETRON 4 MG/2 ML VIAL IVPUSH PRN (09:53)
[2023-03-19 09:55] LABS: CREATININE 0.7 mg/dL (0.55-1.3)
[2023-03-19 12:08] LABS: SYPHILIS W/ RPR CONF NON-REACTIVE (NONREACTIVE)
[2023-03-19 12:38] LABS: HIV INTERPRETATION NEGATIVE (NEGATIVE)
[2023-03-19] MEDS ORDERED: LACTATED RINGERS SOLUTION 1,000 ML/1,000 ML INFUS.BAG IV SCH (13:09)
== END 2023-03-19 14:14 | disposition home or self-care (01) | DRG 241 ==
LOC: JER 14:23 → JERBED 19:16 → UNDOADMOB 19:16 → OBSVTOIN 20:29 → INTOOBSV 20:29 → JERBED 03-17 11:38 → OBSVTOIN 03-18 13:45 → J5S 03-18 19:07
PROVIDERS: ADMIT Internal Medicine; ATTEND Internal Medicine
PROC: HZ2ZZZZ Detoxification Services for Substance Abuse Treatment (ICD-10-PCS; principal; 2023-03-16)
DX: K29.20 Alcoholic gastritis without bleeding (principal); I10 Essential (primary) hypertension; J45.909 Unspecified asthma, uncomplicated; F11.10 Opioid abuse, uncomplicated; F12.90 Cannabis use, unspecified, uncomplicated; F17.210 Nicotine dependence, cigarettes, uncomplicated; F19.10 Other psychoactive substance abuse, uncomplicated; F10.10 Alcohol abuse, uncomplicated
CPT/HCPCS: 0241U-QW; 36415; 74177-TC; 76705-TC; 80048; 80053; 80307; 81003; 83036; 83690; 83735; 84100; 85025; 86780; 87086; 87389; 93005; 93010; 99285-25; G0378